=== PATIENT | female | born 1970 | race Caucasian/White ===

== ENCOUNTER 2021-03-03 00:44 | Emergency (ER) | payer OTHER ==
[2021-03-03 01:14] VITALS: BP 126/81; PULSE 79; TEMP 98; BMI 30.2
[2021-03-03] MEDS ORDERED: IBUPROFEN 600 MG TABLET (FP) PO ONE ×2 (01:53→02:12)
== END 2021-03-03 05:10 | disposition home or self-care (01) ==
LOC: JER 00:44
DX: S92.355A Nondisplaced fracture of fifth metatarsal bone, left foot, initial encounter for closed fracture (principal); W10.8XXA Fall (on) (from) other stairs and steps, initial encounter
CPT/HCPCS: 73610-TC-LT-FY; 73610-TC-RT-FY; 73630-TC-LT; 73630-TC-RT-FY; 99284-25